=== PATIENT | female | born 1980 | race Caucasian/White ===

== ENCOUNTER 2024-08-14 13:27 | Emergency (ER) | payer OTHER ==
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
[2024-08-14] MEDS: ACETAMINOPHEN TAB 500 MG TAB PO STA (14:30)
[2024-08-14] MEDS: ETODOLAC 400 MG TAB PO ONE (14:31)
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
[2024-08-14 15:32] VITALS: BP 178/105; PULSE 83; RESP 18; TEMP 99.5
[2024-08-14] MEDS: ACET/COD 300 MG/30 MG STARTER PACK 6 TAB BTL PO STA (15:46)
[2024-08-15] MEDS ORDERED: ETODOLAC 400 MG TAB PO SCH (09:00)
== END 2024-08-14 15:47 | disposition home or self-care (01) ==
LOC: EC 13:27
DX: S63.91XA Sprain of unspecified part of right wrist and hand, initial encounter (principal); S30.811A Abrasion of abdominal wall, initial encounter; V89.2XXA Person injured in unspecified motor-vehicle accident, traffic, initial encounter
CPT/HCPCS: 71046; 99284